=== PATIENT | male | born 1955 | race Caucasian/White ===

== ENCOUNTER 2022-05-12 19:05 | Emergency (ER) | payer MEDICAID, MEDICARE ==
[2022-05-12 20:44] LABS: BASOPHILS # (AUTO) 0.1 10^3/uL (0.0-0.1); BASOPHILS % (AUTO) 0.5 %; EOSINOPHILS # (AUTO) 0.1 10^3/uL (0.0-0.7); EOSINOPHILS % (AUTO) 0.6 %; HCT - HEMATOCRIT 45.8 % (42.0-52.0); HGB - HEMOGLOBIN 16.2 g/dL (14.0-18.0); LYMPHOCYTES # (AUTO) 2.4 10^3/uL (1.5-3.5); LYMPHOCYTES % (AUTO) 23.2 %; MEAN CORPUSCULAR HEMOGLOBIN 31.8 pg (27.0-31.0); MEAN CORPUSCULAR HGB CONC 35.4 g/dL (32.0-36.0); MEAN PLATELET VOLUME 8.8 fL (7.4-11.4); MONOCYTES % (AUTO) 9.9 %; NEUTROPHILS # (AUTO) 6.8 10^3/uL (1.5-6.6); NEUTROPHILS % (AUTO) 65.4 %; PLT - PLATELET COUNT 266 10^3/uL (130-450); RED BLOOD COUNT 5.09 10^6/uL (4.70-6.10); RED CELL DISTRIBUTION WIDTH 11.9 % (12.0-15.0); WHITE BLOOD COUNT 10.4 x10^3/uL (4.8-10.8)
[2022-05-12 20:58] LABS: ALBUMIN 4.2 g/dL (3.2-5.5); BILIRUBIN,TOTAL 0.9 mg/dL (0.2-1.0); CALCIUM 9.6 mg/dL (8.5-10.3); POTASSIUM 3.9 mmol/L (3.5-5.0); TOTAL PROTEIN 8.3 g/dL (6.7-8.2)
[2022-05-12] MEDS ORDERED: MAG HYDROX/AL HYDROX/SIMETH 30 ML UDC PO STA (21:18)
[2022-05-12] MEDS ORDERED: LIDOCAINE VISCOUS 2% 15 ML UDC MM STA (21:20)
--- NOTE | 2022-05-12 21:37 | XRAY Report ---
PROCEDURE: Chest 1 View X-Ray INDICATIONS: Chest Pain TECHNIQUE: One view of the chest was acquired. COMPARISON: None. FINDINGS: Surgical changes and devices: None. Lungs and pleura: No pleural effusions or pneumothorax. Lungs are clear. Mediastinum: Mediastinal contours appear normal. Heart size is normal. Bones and chest wall: No suspicious bony lesions. Overlying soft tissues appear unremarkable. IMPRESSION: 1. No acute cardiopulmonary disease. Reviewed by: Donnie Campbell MD on 05/12/2022 9:35 PM [facility] Approved by: Donnie Campbell MD on 05/12/2022 9:35 PM [facility] Station ID: [id number]
--- NOTE | 2022-05-12 22:02 | ED Physician Documentation ---
History of Present Illness - Stated complaint Stated Complaint: CHEST PX/VOMIT - Chief complaint Chief Complaint: Cardiac - History obtained from History obtained from: Patient - Additonal information Additional information: Patient is a 66-year-old gentleman presenting for evaluation of burning pain in his chest and epigastric region which is been constant since Wednesday. It is worse at night when he is laying back.He was able to eat oatmeal this morning without any improvement in his symptoms. He denies nausea or vomiting. He denies difficulty breathing, fever, cough or congestion. He denies lower abdominal discomfort. He denies a history of known acid reflux but does admit to drinking a sixpack of Pepsi and smoking cigarettes daily.He denies regular alcohol use. He does admit to regular cannabis use. Review of Systems Constitutional: denies: Fever Nose: denies: Congestion Cardiac: reports: Chest pain / pressure Respiratory: denies: Dyspnea GI: reports: Abdominal Pain (Epigastric). denies: Vomiting : denies: Dysuria Musculoskeletal: denies: Back pain Neurologic: denies: Headache PD PAST MEDICAL HISTORY - Past Medical History Past Medical History: No Cardiovascular: None Respiratory: None Neuro: None Endocrine/Autoimmune: None GI: None : None HEENT: None Psych: None Musculoskeletal: None Derm: None - Past Surgical History Past Surgical History: No - Present Medications Home Medications: Ambulatory Orders Medication Instructions Recorded Confirmed Omeprazole 40 mg PO DAILY #30 cap 05/12/22 - Allergies Allergies/Adverse Reactions: Allergies Allergy/AdvReac Type Severity Reaction Status Date / Time No Known Drug Allergies Allergy Verified 05/12/22 19:31 - Social History Does the pt smoke?: Yes Smoking Status: Current every day smoker Does the pt drink ETOH?: No Does the pt have substance abuse?: Yes Substance Use and Type: Marijuana - Immunizations Immunizations are current?: No - POLST Patient has POLST: No PD ED PE NORMAL - General General: Alert and oriented X 3, No acute distress, Well developed/nourished - HEENT HEENT: Atraumatic, Moist mucous membranes - Neck Neck: Supple, no meningeal sign - Cardiac Cardiac: RRR, Strong equal pulses - Respiratory Respiratory: No respiratory distress, Clear bilaterally - Abdomen Abdomen: Soft, Non distended. No: Non tender (Mild epigastric tenderness to palpation, no rebound, no guarding, no peritoneal signs, no masses or hernias) - Derm Derm: Warm and dry - Extremities Extremities: No edema - Neuro Neuro: Normal speech Results - Vitals Vitals: Vital Signs - 24 hr 05/12/22 05/12/22 05/12/22 19:25 21:31 23:00 Temperature 36.8 C 36.5 C 36.5 C Heart Rate 74 60 60 Respiratory 20 22 16 Rate Blood Pressure 142/83 H 146/86 H 128/80 O2 Saturation 100 98 98 Oxygen O2 Source Room air - EKG (time done) 1931 Rate: Rate (enter#) (66) Rhythm: NSR [place]: RAD Ischemia: No: ST elevation c/w ischemia, ST depression - Labs Labs: Laboratory Tests 05/12/22 05/12/22 05/12/22 20:38 20:38 20:38 WBC 10.4 RBC 5.09 Hgb 16.2 Hct 45.8 MCV 90.0 MCH 31.8 H MCHC 35.4 RDW 11.9 L Plt Count 266 MPV 8.8 Neut # (Auto) 6.8 H Lymph # (Auto) 2.4 [place] # (Auto) 1.0 Eos # (Auto) 0.1 Baso # (Auto) 0.1 Absolute Nucleated RBC 0.00 Nucleated RBC % 0.0 Sodium 131 L Potassium 3.9 Chloride 91 L Carbon Dioxide 28 Anion Gap 12.0 BUN 16 Creatinine 1.0 Estimated GFR (MDRD) 75 L Glucose 118 H Calcium 9.6 Total Bilirubin 0.9 AST 23 ALT 23 Alkaline Phosphatase 94 Troponin I High Sens 6.9 Total Protein 8.3 H Albumin 4.2 Globulin 4.1 Albumin/Globulin Ratio 1.0 Lipase 27 PD MEDICAL DECISION MAKING - ED course Complexity details: reviewed results, re-evaluated patient, d/w patient ED course: Patient presenting for evaluation of burning discomfort in his chest to epigastric region that is been present constantly for several days. It is worse when he lays down. His EKG is a normal sinus rhythm and his high-sensitivity troponin is negative. His chest x-ray is clear. His symptoms are atypical for ACS and he is low risk for ACS based on the heart score. He did have improvement in his symptoms with a GI cocktail.Suspect GI etiology to his symptoms. His abdominal exam is benign. Patient counseled on Treatment plan as well as need for close follow-up. He is advised on concerning symptoms to return for. Departure - Departure Disposition: 01 Home, Self Care Clinical Impression: Burning chest pain Condition: Stable Instructions: ED Chest Pain Atypical Unkn Cause, ED GERD Prescriptions: Omeprazole 40 mg PO DAILY #30 cap Comments: You were evaluated for pain in your chest. Your labs, chest x-ray, EKG do not show any signs of issues with your heart such as a heart attack.I also do not see signs of pancreatitis. Your symptoms to be related to GERD. I am going to start you on a medicine to help reduce acid and I have sent a prescription for this medicine to [facility] in [place]. I would also recommend close follow- up with your primary care doctor and try to limit any triggers such as acidic food, citrus,Spicy foods. If you have any new or worsening symptoms please return to the emergency department. Discharge Date/Time: 05/12/22 23:01
[2022-05-12 23:01] VITALS: BP 128/80
== END 2022-05-12 23:01 | disposition home or self-care (01) ==
LOC: ED 19:05
DX: R07.89 Other chest pain (principal); R10.13 Epigastric pain; F17.210 Nicotine dependence, cigarettes, uncomplicated
CPT/HCPCS: 36415; 71045; 80053; 83690; 84484; 85025; 93005; 99282; 99284; A9270